=== PATIENT | female | born 1935 | race Two or more races ===

== ENCOUNTER 2017-09-01 14:34 | Outpatient (CLI) | payer OTHER ==
[~2017-09-01 14:34] MED LIST: ARICEPT10 MG; HUMULIN N100 U/ML; LANTUS SOLOSTAR3 ML SQ; LIPITOR20 MG PO; NAMENDA5 MG; NORVASC5 MG; PLAVIX 75MG PO; SINGULAIR 10MG10 MG; SYNTHROID50 MCG; TOPROL XL50 M1 PO; ULTRACET PO; VASOTEC PO; VYTORIN 10-20 M1 TAB
== END 2017-09-01 14:44 | disposition home or self-care (01) ==
LOC: LAB 14:34
DX: E11.9 Type 2 diabetes mellitus without complications (principal)

== ENCOUNTER → 2017-09-29 10:57 | Outpatient (CLI) | payer OTHER | END | disposition home or self-care (01) | LOC: LAB 10:57 | DX: E87.1 Hypo-osmolality and hyponatremia (principal); E79.0 Hyperuricemia without signs of inflammatory arthritis and tophaceous disease ==

== ENCOUNTER 2017-11-12 13:38 | Emergency (ER) | payer OTHER ==
[~2017-11-12] VITALS: Ht 157.5 cm; Wt 63.5 kg
[2017-11-12] MEDS ORDERED: JANUMET 50-5001 EACH (14:17)
== END 2017-11-12 21:38 | disposition home or self-care (01) ==
LOC: ER 13:38
DX: R53.1 Weakness (principal); E86.0 Dehydration

== ENCOUNTER 2017-12-03 13:12 | Outpatient (CLI) | payer OTHER ==
[~2017-12-03 13:12] MED LIST changes: +JANUMET 50-5001 EACH
== END 2017-12-03 13:15 | disposition home or self-care (01) ==
LOC: SONOGRAMA 13:12
DX: N18.1 Chronic kidney disease, stage 1 (principal); N31.8 Other neuromuscular dysfunction of bladder; J44.9 Chronic obstructive pulmonary disease, unspecified; S72.031D Displaced midcervical fracture of right femur, subsequent encounter for closed fracture with routine healing

== ENCOUNTER 2018-01-26 10:10 | Outpatient (CLI) | payer OTHER | END 2018-01-26 10:23 | disposition home or self-care (01) | LOC: RAD 10:10 → MAMO-SONO 10:15 → RAD 10:23 | DX: N18.1 Chronic kidney disease, stage 1 (principal); R10.2 Pelvic and perineal pain; S72.031D Displaced midcervical fracture of right femur, subsequent encounter for closed fracture with routine healing ==

== ENCOUNTER 2018-07-24 13:35 | Emergency (ER) | payer OTHER ==
[~2018-07-24] VITALS: Ht 157.5 cm; Wt 63.5 kg
[2018-07-24] MEDS ORDERED: JANUVIA50 MG (13:49)
[2018-07-24] MEDS ORDERED: NAMENDA5 MG (13:50)
[2018-07-24] MEDS ORDERED: ATORVASTATIN CA10 MG (13:50)
[2018-07-24] MEDS ORDERED: SYNTHROID100 MCG (13:50)
[2018-07-24] MEDS ORDERED: PLAVIX75 MG PO (13:51)
[2018-07-24] MEDS ORDERED: ISOSORBIDE DINI20 MG PO (13:51)
[2018-07-24] MEDS ORDERED: [UNRECOGNIZED DRUG - OTHER] (13:51)
[2018-07-24] MEDS ORDERED: SINGULAIR 10MG10 MG (13:51)
[2018-07-24] MEDS ORDERED: LANTUS SOL100 UNIT/1 SQ (13:52)
[2018-07-24] MEDS ORDERED: TOPROL XL25 M1 PO (13:52)
[2018-07-24] MEDS ORDERED: CLARITIN10 MG PO (13:52)
== END 2018-07-24 19:48 | disposition home or self-care (01) ==
LOC: ER 13:35
DX: S80.02XA Contusion of left knee, initial encounter (principal); W18.39XA Other fall on same level, initial encounter; Y93.89 Activity, other specified; Y92.098 Other place in other non-institutional residence as the place of occurrence of the external cause; Y99.8 Other external cause status

== ENCOUNTER → 2018-07-25 | Emergency (ER) | payer OTHER ==
[~2018-07-25] VITALS: Ht 157.5 cm; Wt 65.3 kg
[~2018-07-25] MED LIST changes: +ATORVASTATIN CA10 MG; +CLARITIN10 MG PO; +ISOSORBIDE DINI20 MG PO; +JANUVIA50 MG; +LANTUS SOL100 UNIT/1 SQ; +PLAVIX75 MG PO; +SYNTHROID100 MCG; +TOPROL XL25 M1 PO; +[UNRECOGNIZED DRUG - OTHER]
== END | disposition home or self-care (01) ==
LOC: ER 13:00
DX: S82.142D Displaced bicondylar fracture of left tibia, subsequent encounter for closed fracture with routine healing (principal); W18.09XD Striking against other object with subsequent fall, subsequent encounter

== ENCOUNTER 2018-08-05 12:02 | Outpatient (CLI) | payer OTHER | END 2018-08-05 12:08 | disposition home or self-care (01) | LOC: RAD 12:02 | DX: M25.562 Pain in left knee (principal) ==

== ENCOUNTER 2018-08-25 12:33 | Outpatient (CLI) | payer OTHER | END 2018-08-25 12:38 | disposition home or self-care (01) | LOC: RAD 12:33 | DX: M54.5 Low back pain (principal); M25.562 Pain in left knee ==

== ENCOUNTER → 2018-11-09 | Outpatient (CLI) | payer OTHER | END | disposition home or self-care (01) | LOC: NUCLEAR 10:00 | DX: M81.0 Age-related osteoporosis without current pathological fracture (principal) ==

== ENCOUNTER 2018-11-11 12:54 | Outpatient (CLI) | payer OTHER | END 2018-11-11 12:59 | disposition home or self-care (01) | LOC: RAD 12:54 | DX: M25.562 Pain in left knee (principal) ==

== ENCOUNTER 2019-04-03 22:21 | Emergency (ER) | payer OTHER ==
[~2019-04-03] VITALS: Ht 157.5 cm; Wt 63.5 kg
[2019-04-04] MEDS ORDERED: DOXYCYCLINE HY100 M2 PO (03:36)
== END 2019-04-04 06:07 | disposition home or self-care (01) ==
LOC: ER 22:21
DX: N39.0 Urinary tract infection, site not specified (principal); R41.0 Disorientation, unspecified; G31.83 Neurocognitive disorder with Lewy bodies; F02.80 Dementia in other diseases classified elsewhere, unspecified severity, without behavioral disturbance, psychotic disturbance, mood disturbance, and anxiety; B37.89 Other sites of candidiasis; B95.4 Other streptococcus as the cause of diseases classified elsewhere